=== PATIENT | male | born 1965 | race Caucasian/White ===

== ENCOUNTER 2022-05-17 22:17 | Emergency (ER) | payer OTHER ==
[~2022-05-17] VITALS: Ht 188 cm; Wt 104.3 kg
--- NOTE | 2022-05-17 22:20 | NUR ---
Note undone in EDM - 05/17/22 at 2248 by [id number] EMS lashae on a gurney, to ED Bed 1, at bed side and other team members. Patient non-verbal, non-responsive, brought from home, no fam present. c-colllar placed on patient, safety device in use, clothes removed. Chest symetrycal, Abd non-distended, Pt w/ random jerk movement at times. O2 3L n/c in use- O2 sat 95%. VS WNL. Condition status - Guarded
[2022-05-17 22:23] VITALS: BP_SYST 103
--- NOTE | 2022-05-17 22:26 | NUR ---
PATIENT BIBA AFTER BEING FOUND DOWN BY FAMILY AT HOME. (+) ETOH, FELL EARLIER AT [facility]AURANT. NO TRAUMA NOTED TO BODY, PATIENT BECAME ALTERED ENROUTE AND RECIEVED 5MG VERSED IM APPLICATION RELEASE MANAGER.
[2022-05-17] MEDS ORDERED: NALOXONE HCL 0.4 MG/ML AMP (NARCAN) ONE (22:27)
--- NOTE | 2022-05-17 22:27 | NUR ---
PATIENT IN BED 1, PLACED ON MONITORS, MD AND RN'S AT BEDSIDE.
--- NOTE | 2022-05-17 22:28 | NUR ---
EMS lashae on a gurney, to ED Bed 1, MD at bed side and other team members. Patient non-verbal, non-responsive, brought from home, no fam present. c-colllar placed on patient, safety device in use, clothes removed. Chest symetrycal, Abd non-distended, Pt w/ random jerk movement at times. O2 3L n/c in use- O2 sat 95%. VS WNL. Condition status - Guarded
--- NOTE | 2022-05-17 22:28 | NUR ---
# 18 gauge angiocath placed to RAC. Use of asceptic technique. Opsite placed over site. Blood return noted. Blood for lab drawn from site. Flushed with 10 cc of normal saline. No evidence of infiltration noted. Patient tolerated well.
--- NOTE | 2022-05-17 22:30 | NUR ---
# 16 FR West catheter with use of sterile technique. Immediate return of 150 cc urine noted. Bedside drainage bag placed below level of bladder. Urine sample collected and sent to lab. Pt tolerated procedure well Patient unable to toilet self.
[2022-05-17] MEDS ORDERED: NALOXONE HCL 0.4 MG/ML AMP (NARCAN) IVP ONE (22:45)
[2022-05-17 23:08] LABS: BILIRUBIN,URINE NEGATIVE (NEGATIVE); BLOOD, URINE 1+ (NEGATIVE); CLARITY/URINE CLEAR (CLEAR); COLOR,URINE YELLOW (YELLOW); GLUCOSE,URINE NEGATIVE (NEGATIVE); KETONES,URINE NEGATIVE (NEGATIVE); LEUKOCYTE ESTERASE ,URINE TRACE (NEGATIVE); NITRITE, URINE NEGATIVE (NEGATIVE); PH,URINE 5.5 (5.0-8.0); PROTEIN URINE TRACE (NEGATIVE); UROBILINOGEN,URINE 0.2 (0.2-1.0)
[2022-05-17 23:18] LABS: HEMATOCRIT 43.6 % (36-54)
[2022-05-17 23:22] LABS: PROTHROMBIN TIME 10.1 SECS (9.5-12.5)
[2022-05-17 23:24] LABS: ANION GAP 20 (5-15); CALCIUM 8.4 mg/dL (8.4-11.0); CHLORIDE 98 mmol/L (98-107); CREATININE 1.38 mg/dL (0.55-1.30); GLUCOSE 85 mg/dL (70-99); POTASSIUM 3.1 mmol/L (3.5-5.1); SODIUM SERUM 135 mmol/L (136-145); UREA NITROGEN, BLOOD 18 mg/dL (8-21)
[2022-05-17 23:27] LABS: BASOPHILS # (AUTO) 0.1 K/uL (0.0-0.2); BASOPHILS % (AUTO) 0.7 % (0.0-2.0); EOSINOPHILS # (AUTO) 0.1 K/uL (0.0-0.4); EOSINOPHILS % (AUTO) 1.2 % (0.0-4.0); HEMOGLOBIN 14.7 g/dL (14.0-18.0); LYMPHOCYTES # (AUTO) 3.5 K/uL (1.0-5.5); LYMPHOCYTES % (AUTO) 30.9 % (20.5-51.5); MEAN CORPUSCULAR HEMOGLOBIN 30 pg (27-31); MEAN CORPUSCULAR HGB CONC 34 % (32-36); MEAN CORPUSCULAR VOLUME 88 fL (79.0-98.0); MONOCYTES # (AUTO) 0.5 K/uL (0.0-1.0); MONOCYTES % (AUTO) 4.4 % (1.7-9.3); NEUTROPHILS % (AUTO) 62.8 % (40.0-70.0); PLATELET COUNT (AUTO) 291 K/uL (130-430); RED BLOOD CELL COUNT(AUTO) 4.95 MIL/uL (4.2-6.2); RED CELL DISTRIBUTION WIDTH 12.9 % (9.0-15.0); WHITE BLOOD COUNT (AUTO) 11.2 K/uL (4.8-10.8)
[2022-05-17 23:31] LABS: BARBITURATE, URINE NEGATIVE (NEG <=200); BENZODIAZEPINE, URINE NEGATIVE (NEG <=150); CANNABINOID, URINE NEGATIVE (NEG <=50); COCAINE, URINE NEGATIVE (NEG <=150); METHAMPHETAMINES SCREEN,URINE NEGATIVE (NEG <=500); OPIATE, URINE NEGATIVE (NEG <=100); PHENCYCLIDINE SCREEN,URINE NEGATIVE (NEG <=25); UR TRICYCLIC ANTIDEPRESSANTS NEGATIVE (NEG <=300); URINE AMPHETAMINE NEGATIVE (NEG <=500); URINE METHADONE NEGATIVE (NEG <=200); URINE OXYCODONE SCREEN NEGATIVE (NEG <=100); URINE PROPOXYPHENE SCREEN NEGATIVE (NEG <=300)
[2022-05-17 23:33] LABS: ALANINE AMINOTRANSFERASE 31 U/L (12-78); ALBUMIN 4.2 g/dL (3.4-4.8); ALCOHOL, BLOOD 227 mg/dL (<10); ASPARTATE AMINOTRANSFERASE 22 U/L (10-37); TOTAL BILIRUBIN 0.2 mg/dL (0.0-1.0)
[2022-05-17 23:48] LABS: GFR AFRICAN AMERICAN 68 mL/min (>90)
[2022-05-18] MEDS ORDERED: NACL 0.9% 1,000 ML IV ONE
[2022-05-18 00:03] LABS: BACTERIA,URINE FEW /HPF (None Seen); WBC,URINE 20-50 /HPF (0-3)
[2022-05-18 00:05] LABS: MUCUS,URINE 1+ /LPF (None Seen)
--- NOTE | 2022-05-18 00:30 | NUR ---
Pt awake, speaking w/ his son who is at bedside s/p IVF infusion. MD made aware, at bedside speaking w/ son re: pt status
[2022-05-18] MEDS ORDERED: ONDANSETRON HCL 4 MG/2 ML VIAL ONE ×2 (01:14→02:02)
[2022-05-18] MEDS ORDERED: ONDANSETRON HCL 4 MG/2 ML VIAL IVP ONE ×2 (01:15→02:00)
--- NOTE | 2022-05-18 02:03 | NUR ---
velázquez cath emptied 2200ml clear yellow urine. Pt w/ c/o N/V. Zofran IVP given will re-assess.
--- NOTE | 2022-05-18 02:21 | NUR ---
made aware patient is requesting water. states he will be at bedside shortly to reassess patient prior to giving patient water.
[2022-05-18] MEDS ORDERED: POTASSIUM CHLORIDE 20 MEQ TAB.PRT.SR PO ONE (02:45)
[2022-05-18] MEDS ORDERED: iohexoL 350 mgI/mL, 100 ML INFUS..BTL IV ONE (03:02)
--- NOTE | 2022-05-18 04:30 | NUR ---
Pt more awake, verbalize having no memory of occurances last night, and does not remember conversations he had with his son, nursing staff and doctor. VS are WNL and stable. West cath with output of 1,200 ml / intact. No s/s of distress noted, daughter at bedside.
--- NOTE | 2022-05-18 05:54 | NUR ---
Pt more awake, pending transfer to [facility] However Pt has decide to go home against medical advice. VS done are WNL, Pt is stable and Verbalized to "no disrespect to you, but, I dont like hospitals, I prefer to go home!" Depite ED Physician explanation of presenting health guarded condition.
--- NOTE | 2022-05-18 06:10 | NUR ---
Note undone in EDM - 05/18/22 at 0613 by [email or web address] Admit bed requested Patient will be admitted to care of [RONALD]. Admitted to [TELE] unit. Diagnosis [FEVER, RENAL FAILURE] Inpatient (Yes or No) [YES] Observation (Yes or No) [NO] Orientation concerns or request close to nursing station (Yes or No) [NO] Covid Status [NEG] On vent or bipap [NO] Isolation requirements [NO] Needs a sitter [NO] From Home (Yes or if No enter name of facility) [YES] Requires Dialysis (Yes or No) [NO] Med Rec Completed (Yes of No) [NO]
[2022-05-18] MEDS ORDERED: D5NS 1,000 ML IV ONE (06:15)
--- NOTE | 2022-05-18 06:19 | NUR ---
ADMISSION ORDERS NEED TO BE UNDONE, PUT IN UNDER WRONG PATIENT.
[2022-05-18 06:28] VITALS: BP_SYST 120
--- NOTE | 2022-05-18 06:31 | NUR ---
Patient does not wish to proceed with medical care recommended by Dr Barr. Patient given information related to possible complications, up to and including , which could occur as a result of leaving hospital at this time. Patient verbalizes understanding of risks involved leaving against medical advice. Patient has signed AMA form after discussion of all possible complications by Dr Barr at bedside.
== END 2022-05-18 06:28 | disposition left against medical advice (07) ==
LOC: SED 22:17
DX: R41.82 Altered mental status, unspecified (principal); E87.2 Acidosis; E87.6 Hypokalemia; N28.9 Disorder of kidney and ureter, unspecified; Z88.0 Allergy status to penicillin; Z79.899 Other long term (current) drug therapy; Z20.822 Contact with and (suspected) exposure to COVID-19
CPT/HCPCS: 99285; 70450; 71045; 87426; 80307; 80053; 81000; 82140; 82550; 85025; 85610; 85730; 87086; 84484; 36415; 93005; 72125; 76376 ×2; 83605; 96374; 71275; 96361; 96375; 96376; G0482; J2310; Q9967; J2405; J7030